=== PATIENT | male | born 1970 | race African-American/Black ===

== ENCOUNTER 2020-07-11 18:44 | Emergency (ER) | payer SELFPAY ==
[~2020-07-11] VITALS: Ht 167.6 cm; Wt 73.0 kg
[2020-07-11] MEDS ORDERED: IBUPROFEN 600MG TABLET PO ONE (19:30)
[2020-07-11] MEDS ORDERED: CEFTRIAXONE 1 G PREMIX 50 ML IV ONE (22:00)
[2020-07-11] MEDS ORDERED: AZITHROMYCIN 500 MG in DEXT 5% WATER 250 ML IV ONE (22:00)
[2020-07-11] MEDS ORDERED: ASPIRIN 81MG TABLET PO ONE (22:00)
[2020-07-11 22:08] LABS: HEMATOCRIT. 23.3 % (42.0-52.0); HEMOGLOBIN. 8.2 g/dL (14.0-18.0); MEAN CORPUSCULAR HEMOGLOBIN 29.9 pg (28.0-32.0); MEAN CORPUSCULAR VOLUME 84.7 fL (80.0-94.0); RED BLOOD CELL COUNT 2.75 mill/uL (4.7-6.1); RED CELL DISTRIBUTION WIDTH 27.1 % (11.6-14.6)
[2020-07-11 22:15] LABS: CHLORIDE 104 mEq/L (98-107)
[2020-07-11 22:40] LABS: NUCLEATED RED BLOOD CELLS 6 /100 WBC
[2020-07-11 22:41] LABS: PLATELET ESTIMATE NORMAL
[2020-07-11 22:43] LABS: MEAN PLATELET VOLUME 9.4 fl (7.4-10.4); PLATELET 158 x1000/uL (130-400)
[2020-07-12 09:34] VITALS: BP 120/78
== END 2020-07-12 10:04 | disposition left against medical advice (07) ==
LOC: ER 18:44 → CANBEDREQ 07-12 14:53
DX: U07.1 COVID-19 (principal); J18.9 Pneumonia, unspecified organism; I49.9 Cardiac arrhythmia, unspecified
CPT/HCPCS: 36415; 71045; 80053; 83880; 84484; 85025; 87040; 93005; 96365; 96368; 99285; C9803; J0456; J7060; U0003